=== PATIENT | female | born 1950 | race African-American/Black ===

== ENCOUNTER 2022-08-27 09:17 | Emergency (ER) | payer MEDICARE ==
[~2022-08-27] VITALS: Ht 167.6 cm; Wt 22.7 kg
[~2022-08-27 09:17] MED LIST: CETI-89 PO; CLOP75TA33 PO; EZET-83; FAMO20TA8 PO; LORA-250; LOSA50TA41 PO; MECL-217 MT
[2022-08-27 10:11] VITALS: O2SAT 100
[2022-08-27] MEDS ORDERED: CYCL5TAB MT ×3 (11:09→12:27)
[2022-08-27 12:09] VITALS: BP 132/97; PULSE 67; RESP 18; TEMP 98.7
== END 2022-08-27 12:10 | disposition home or self-care (01) ==
LOC: ER 09:17
DX: M54.6 Pain in thoracic spine (principal); I10 Essential (primary) hypertension; Z88.0 Allergy status to penicillin; Z88.1 Allergy status to other antibiotic agents; Z88.8 Allergy status to other drugs, medicaments and biological substances; Z79.899 Other long term (current) drug therapy; Z98.890 Other specified postprocedural states; Z86.59 Personal history of other mental and behavioral disorders
CPT/HCPCS: 72070; 72100; 99284